=== PATIENT | female | born 1975 | race Two or more races ===

== ENCOUNTER 2018-03-09 09:04 | Emergency (ER) | payer OTHER ==
[~2018-03-09] VITALS: Ht 180.3 cm; Wt 86.6 kg
[2018-03-09] MEDS ORDERED: ZANTAC150 MG PO (14:28)
[2018-03-09] MEDS ORDERED: XANAX0.25 MG PO (14:28)
[2018-03-09] MEDS ORDERED: ZOFRAN8 MG PO (14:28)
== END 2018-03-09 15:49 | disposition home or self-care (01) ==
LOC: ER 09:04
DX: R10.11 Right upper quadrant pain (principal)

== ENCOUNTER 2018-03-30 12:09 | Emergency (ER) | payer OTHER ==
[~2018-03-30] VITALS: Ht 180.3 cm; Wt 85.7 kg
[~2018-03-30 12:09] MED LIST: XANAX0.25 MG PO; ZANTAC150 MG PO; ZOFRAN8 MG PO
== END 2018-03-30 14:56 | disposition home or self-care (01) ==
LOC: ER 12:09
DX: S00.83XA Contusion of other part of head, initial encounter (principal); W22.8XXA Striking against or struck by other objects, initial encounter; Y93.89 Activity, other specified; Y92.89 Other specified places as the place of occurrence of the external cause; Y99.8 Other external cause status

== ENCOUNTER 2018-06-01 19:19 | Emergency (ER) | payer OTHER ==
[~2018-06-01] VITALS: Ht 177.8 cm; Wt 82.1 kg
== END 2018-06-01 21:27 | disposition home or self-care (01) ==
LOC: ER 19:19
DX: K64.8 Other hemorrhoids (principal); K59.09 Other constipation; L02.224 Furuncle of groin

== ENCOUNTER 2018-11-02 11:45 | Emergency (ER) | payer OTHER ==
[~2018-11-02] VITALS: Ht 175.3 cm; Wt 83.9 kg
[2018-11-02] MEDS ORDERED: INTESTINEX680 M1 PO (14:59)
== END 2018-11-02 15:06 | disposition home or self-care (01) ==
LOC: ER 11:45
DX: K29.70 Gastritis, unspecified, without bleeding (principal); R10.11 Right upper quadrant pain

== ENCOUNTER 2023-12-08 05:50 | Emergency (ER) | payer OTHER ==
[~2023-12-08] VITALS: Ht 180.3 cm; Wt 77.1 kg
[~2023-12-08 05:50] MED LIST changes: +INTESTINEX680 M1 PO
[2023-12-08] MEDS ORDERED: DIPHENHYDRAMINE HCL 50 MG/ML VIAL 1ML IM ONE (08:30)
[2023-12-08] MEDS ORDERED: METHYLPREDNISOLONE SOD SUCC 40 MG VIAL IM ONE (08:30)
[2023-12-08 09:02] LABS: HEMATOCRIT 40.7 % (36.0-45.00); HEMOGLOBIN 13.7 g/dL (12.0-15.00); MEAN CORPUSCULAR HEMOGLOBIN 29.3 pg (27.00-32.0); MEAN CORPUSCULAR HGB CONC 33.7 g/dl (32.0-36.0); PLATELET COUNT 257 K/uL (150-450); RED BLOOD COUNT 4.67 M/uL (4.00-6.00); RED CELL DISTRIBUTION WIDTH 14.6 % (11.5-14.5)
[2023-12-08 09:21] LABS: PH,URINE 5.5 (5.0-8.0); URINE APPEARANCE Clear; URINE BILIRRUBIN Negative (NEGATIVE); URINE BLOOD Negative; URINE COLOR Yellow; URINE GLUCOSE Negative (NEGATIVE); URINE LEUKOCYTE Trace; URINE NITRATE Negative; URINE PROTEIN Negative (NEGATIVE); URINE UROBILINOGEN 0.2 E.U./dl
[2023-12-08 09:28] LABS: URINE BACTERIA 3261.7 uL (0.0-1933); URINE EPITHELIAL CELLS 57.5 uL (0.0-38.8); URINE WBC 57.6 uL (0.0-23.2)
[2023-12-08 09:29] LABS: URINE RBC 0.8 uL (0.0-20.8)
[2023-12-08 10:02] LABS: ALBUMIN 4.1 gm/dL (3.4-5.0); ANION GAP 5 (10.0-20.0); BLOOD UREA NITROGEN 14 mg/dL (7-18); BUN CREA RATIO 17 (7.0-25.0); CALCIUM 9.3 mg/dL (8.5-10.1); CARBON DIOXIDE 30 mEq/L (21-32); CHLORIDE 105 mmol/L (98-107); CREATININE SERUM 0.84 mg/dL (0.55-1.02); GFR 72.06; GLUCOSE FASTING 122 mg/dL (65-100); OSMOLALITY SERUM 274 MOSM/KG (275-295); PHOSPHOROUS 3.2 mg/dL (2.5-4.9); POTASSIUM 4.03 mEq/L (3.5-5.1); SODIUM 136 mmol/L (136-145)
[2023-12-08 10:03] LABS: HCG QUANTITATIVE < 1 mUI/mL (1-3)
== END 2023-12-08 11:47 | disposition home or self-care (01) ==
LOC: ER 05:50
PROVIDERS: General Practice
DX: T78.49XA Other allergy, initial encounter (principal); X58.XXXA Exposure to other specified factors, initial encounter; N39.0 Urinary tract infection, site not specified